=== PATIENT | female | born 1995 | race African-American/Black ===

== ENCOUNTER 2017-10-20 00:20 | Emergency (ER) | payer MEDICAID ==
[~2017-10-20] VITALS: Ht 152.4 cm; Wt 47.7 kg
[2017-10-20 00:22] VITALS: BP 141/83; PULSE 112; RESP 16; TEMP 98.8; O2SAT 99
[2017-10-20] MEDS ORDERED: SERT-132 PO (00:28)
[2017-10-20] MEDS ORDERED: PREN29TA PO (00:28)
[2017-10-20] MEDS ORDERED: AMLO5TAB2 PO (00:28)
[2017-10-20] MEDS ORDERED: PROMETHAZINE HCL 25 MG TAB PO ONE (01:00)
[2017-10-20] MEDS ORDERED: PROM25TA10 PO (01:02)
--- NOTE | 2017-10-20 01:02 | PD ---
HPI Chief Complaint: GI Complaint Time Seen by Provider: 00:43 Travel History International Travel<30 days: No Contact w/Intl Traveler<30days: No Traveled to known affect area: No History of Present Illness HPI 31-year-old female complains of nausea vomiting diarrhea. Patient states that the symptoms started this evening. Patient denies any headache. Patient denies any earache sore throat coughing congestion. Patient denies abdominal pain. Patient denies any vaginal discharge or bleeding. Patient denies any dysuria or frequency. Patient is 13 weeks . Patient has been seen by [facility] for this . PFSH Past Medical History Hypertension: Yes Influenza Vaccination: No ?: : 1 Para: 1 Past Surgical History Section: Yes Social History Alcohol Use: No Tobacco Use: No Substance Use: No Allergies-Medications (Allergen,Severity, Reaction): Coded Allergies: epinephrine (Verified Allergy, Severe, 10/20/17) BECOMES UNRESPONSIVE Reported Meds & Prescriptions Reported Meds & Active Scripts Active Reported Plus Iron 29-1 mg ( Vit-Iron Carbonyl) 29 Mg Iron-1 Mg Tab 1 Tab PO DAILY Sertraline (Sertraline HCl) 50 Mg Tab 50 Mg PO DAILY Amlodipine (Amlodipine Besylate) 5 Mg Tab 5 Mg PO DAILY Review of Systems General / Constitutional: No: Fever Eyes: No: Visual changes HENT: No: Headaches Cardiovascular: No: Chest Pain or Discomfort Respiratory: No: Shortness of Breath Gastrointestinal: Positive: Nausea, Vomiting, Diarrhea, No: Abdominal Pain Genitourinary: No: Dysuria Musculoskeletal: No: Pain Skin: No Rash Neurologic: No: Weakness Psychiatric: No: Depression Endocrine: No: Polydipsia Hematologic/Lymphatic: No: Easy Bruising Physical Exam Narrative GENERAL: Well-nourished, well-developed patient. SKIN: Focused skin assessment warm/dry. HEAD: Normocephalic. EYES: No scleral icterus. No injection or drainage. Mucous membrane is moist. NECK: Supple, trachea midline. No JVD or lymphadenopathy. CARDIOVASCULAR: Regular rate and rhythm without murmurs, gallops, or rubs. RESPIRATORY: Breath sounds equal bilaterally. No accessory muscle use. GASTROINTESTINAL: Abdomen soft, non-tender, nondistended. MUSCULOSKELETAL: No cyanosis, or edema. BACK: Nontender without obvious deformity. No CVA tenderness. Data Data Last Documented VS Vital Signs Date Time Temp Pulse Resp B/P (MAP) Pulse Ox O2 Delivery O2 Flow Rate FiO2 10/20/17 00:22 98.8 112 16 141/83 (102) 99 Room Air Orders Orders Promethazine (Phenergan) (10/20/17 01:00) MDM Medical Decision Making Medical Screen Exam Complete: Yes Emergency Medical Condition: Yes Differential Diagnosis Differential diagnosis including gastroenteritis, dehydration, electrolyte imbalance. Narrative Course 21-year-old female with nausea vomiting diarrhea. The symptoms started this evening. Phenergan 25 mg by mouth given. Procedures Procedure Narrative Emergency Department Pelvic ultrasound was performed with patient consent. The curvilinear probe was used in the transverse and sagittal views within the suprapubic region revealing single intrauterine . heart rate was 146 Diagnosis Primary Impression: Gastroenteritis Patient Instructions: General Instructions Additional Instructions: Phenergan as needed for nausea vomiting. Follow-up with personal physician. Return if persistent problem or worse. Med/Other Pt SpecificInfo: Prescription(s) given Scripts Promethazine (Phenergan) 25 Mg Tablet 25 MG PO Q6H Y for NAUSEA OR VOMITING, #10 TAB 0 Refills Prov: Ke Iglesias MD 10/20/17 Disposition: 01 DISCHARGE HOME Condition: Stable Ke Iglesias MD Oct 20, 2017 01:02
== END 2017-10-20 01:31 | disposition home or self-care (01) ==
LOC: NEPC 00:20
DX: O99.611 Diseases of the digestive system complicating pregnancy, first trimester (principal); K52.9 Noninfective gastroenteritis and colitis, unspecified; O13.1 Gestational [pregnancy-induced] hypertension without significant proteinuria, first trimester; Z3A.13 13 weeks gestation of pregnancy; Z79.899 Other long term (current) drug therapy
CPT/HCPCS: 99284